=== PATIENT | female | born 1985 | race Caucasian/White ===

== ENCOUNTER 2019-07-07 09:43 | Emergency (ER) | payer SELFPAY ==
[2019-07-07] MEDS ORDERED: ONDANSETRON 4 MG/2 ML VIAL ONE (10:15)
[2019-07-07] MEDS ORDERED: KETOROLAC 30 MG/ML INJ ONE (10:15)
[2019-07-07] MEDS ORDERED: NA CHLORIDE 0.9% 1,000 ML ONE (10:15)
[2019-07-07 10:43] LABS: Urine Blood NEGATIVE (NEG); Urine Glucose NEGATIVE (NEG); Urine Protein 2+ (NEG); Urine Specific Gravity 1.025 (1.005-1.030)
[2019-07-07 11:20] LABS: Absolute Lymphocytes (CBC) 1.7 K/uL (0.7-4.9); Basophils % 0.2 % (0-1.3); Hematocrit 41.8 % (36.0-45.0); Lymphocytes % 10.6 % (15.3-44.8); MPV 8.4 fL (7.6-11.3); RBC Red Blood Cell Count 4.41 M/uL (3.86-4.86)
[2019-07-07 11:38] LABS: Albumin 3.4 g/dL (3.4-5.0); Bilirubin Direct 0.2 mg/dL (0-0.2); Bilirubin Total 0.6 mg/dL (0.2-1.0); Protein, Total 8.6 g/dL (6.4-8.2)
--- NOTE | 2019-07-07 11:49 | RAD REPORT ---
EXAM DESCRIPTION: US - Abdomen Exam Limited - 07/07/2019 11:17 am CLINICAL HISTORY: ABD PAIN COMPARISON: No comparisons FINDINGS: Gallbladder is tightly contracted. Patient may not have been fasting prior to this examina tion. Within the lumen there is no stone or sludge identifiable. Gallbladder wall shows a uniform thi ckening consistent with the contracted state. No gallbladder wall edema or focal mass/thickening. No pericholecystic fluid. No common duct stone or biliary tree dilatation identified. IMPRESSION: Gallbladder is tightly contracted possibly from nonfasting state. No stones or sludge se en within the lumen. No biliary tree abnormality seen.
--- NOTE | 2019-07-07 13:19 | RAD REPORT ---
EXAM DESCRIPTION: CT - Abdomen Pelvis W Contrast - 07/07/2019 1:03 pm CLINICAL HISTORY: ABD PAIN, fever right-sided abdominal pain COMPARISON: None. TECHNIQUE: Biphasic, helical CT imaging of the abdomen and pelvis was performed following 100 ml non -ionic IV contrast. Oral contrast was given. All CT scans are performed using dose optimization technique as appropriate and may include automated exposure control or mA/KV adjustment according to patient size. FINDINGS: No suspicious findings in the lung bases. The liver, spleen, and pancreas show no suspicious findings. Gallbladder and biliary tree are also wi thout suspicious finding. Symmetric renal function is seen with no hydronephrosis or suspicious renal mass. No pyelonephritis o r acute parenchymal process. Urinary bladder is contracted precluding accurate assessment. No adrenal abnormalities. No dilated bowel loops or bowel wall thickening. Appendix is normal. No free air, free fluid or infla mmatory stranding. No hernia, mass or bulky lymphadenopathy. Uterus and ovaries show no suspicious f indings. No suspicious bony findings. IMPRESSION: Contrast enhanced CT abdomen and pelvis showing no emergent finding. Urinary bladder is contracted limiting assessment. Cystitis is not excluded. Renal findings are not s uspicious for pyelonephritis.
--- NOTE | 2019-07-07 13:38 | ER ---
Nurse's Notes [facility] Name: Geri Patricio Age: 33 yrs Sex: Female : 1985 Arrival Date: 07/07/2019 Time: 09:46 Bed 16 Private MD: Diagnosis: Nausea and vomiting;Generalized abdominal pain Presentation: 07/07 09:58 Presenting complaint: Patient states: subjective fever x 3-4 weeks as well as nausea ss after eating. Also c/o intermittent R sided abd pain that is worse when laying on R side. Transition of care: patient was not received from another setting of care. Onset of symptoms is unknown. Risk Assessment: Do you want to hurt yourself or someone else? Patient reports no desire to harm self or others. Initial Sepsis Screen: Does the patient meet any 2 criteria? No. Patient's initial sepsis screen is negative. Does the patient have a suspected source of infection? No. Patient's initial sepsis screen is negative. Care prior to arrival: None. 09:58 Method Of Arrival: Ambulatory ss 09:58 Acuity: HOLLY 3 ss RIBBON WINDER: 10:03 LMP N/A - Irregular menses rb1 Historical: - Allergies: 10:00 Aspirin; ss - Home Meds: 10:00 None [Active]; ss - PMHx: 10:00 None; ss - PSHx: 10:00 Hernia repair; Tubal ligation; ss - Immunization history:: Adult Immunizations unknown. - Social history:: Smoking status: Patient uses tobacco products, smokes one pack cigarettes per day. - Ebola Screening: : Patient denies exposure to infectious person Patient denies travel to an Ebola-affected area in the 21 days before illness onset. Screenin:03 Abuse screen: Denies threats or abuse. Nutritional screening: No deficits noted. rb1 Tuberculosis screening: No symptoms or risk factors identified. Fall Risk None identified. Assessment: 10:03 General: Appears in no apparent distress. comfortable, Behavior is calm, cooperative, rb1 Reports fever for feeling ill for x 3 weeks. Pain: Complains of pain in epigastric area, right upper quadrant and right lower quadrant Pain currently is 6 out of 10 on a pain scale. Neuro: Level of Consciousness is awake, alert, obeys commands, Oriented to person, place, time, situation. Cardiovascular: Capillary refill < 3 seconds is brisk in bilateral fingers. Respiratory: Airway is patent Respiratory effort is even, unlabored, Respiratory pattern is regular, symmetrical. GI: Abdomen is flat, Reports nausea. : No signs and/or symptoms were reported regarding the genitourinary system. Derm: Skin is pink, warm \T\ dry. 11:00 Reassessment: Patient appears in no apparent distress at this time. No changes from rb1 previously documented assessment. 12:00 Reassessment: Patient appears in no apparent distress at this time. Patient and/or rb1 family updated on plan of care and expected duration. Pain level reassessed. Patient is alert, oriented x 3, equal unlabored respirations, skin warm/dry/pink. Pain 4/10. 12:39 Reassessment: pt. ambulated to the restroom without difficulty. rb1 12:53 Reassessment: Pt. went for CT. rb1 13:53 Reassessment: Patient appears in no apparent distress at this time. Patient and/or rb1 family updated on plan of care and expected duration. Pain level reassessed. Patient is alert, oriented x 3, equal unlabored respirations, skin warm/dry/pink. Vital Signs: 09:58 Resp 16; Temp 97.2(TE); Weight 68.04 kg; Height 5 ft. 7 in. (170.18 cm); Pain 5/10; ss 11:00 BP 109 / 67; Pulse 77; Resp 16; Temp 97.7(TE); Pulse Ox 99% on R/A; Pain 4/10; rb1 11:30 Pain 4/10; rb1 11:54 BP 106 / 67; Pulse 80; Resp 18; Pulse Ox 96% ; ms 12:30 BP 109 / 73; Pulse 75; Resp 17; Pulse Ox 100% on R/A; Pain 4/10; rb1 13:53 BP 108 / 69; Pulse 72; Resp 16; Temp 97.9(TE); Pulse Ox 99% on R/A; Pain 4/10; rb1 09:58 Body Mass Index 23.49 (68.04 kg, 170.18 cm) ED Course: 09:46 Patient arrived in ED. mr 09:58 Arm band placed on right wrist. ss 09:59 Triage completed. ss 10:00 Munira Delgado FNP-C is PHCP. kb 10:00 Leighton Young MD is Attending Physician. kb 10:03 Patient has correct armband on for positive identification. Bed in low position. Call rb1 light in reach. Side rails up X 1. Pulse ox on. NIBP on. Warm blanket given. 10:06 Margarita Brown, RN is Primary Nurse. rb1 10:44 Missed attempt(s): 22 gauge in left antecubital area. rb1 11:00 Initial lab(s) drawn, by me, sent to lab. Inserted saline lock: 20 gauge in left ms antecubital area, using aseptic technique. Blood collected. Missed attempt(s): 22 gauge in left forearm. Bleeding controlled, band aid applied, catheter tip intact. 11:44 US Abdomen Limited In Process Unspecified. EDMS 13:05 CT Abd/Pelvis - IV Contrast Only In Process Unspecified. EDMS 14:02 No provider procedures requiring assistance completed. IV discontinued, intact, rb1 bleeding controlled, No redness/swelling at site. Pressure dressing applied. Administered Medications: 11:13 Drug: NS 0.9% 1000 ml Route: IV; Rate: 1000 ml; Site: left antecubital; rb1 12:33 Follow up: IV Status: Completed infusion rb1 11:13 Drug: Zofran 4 mg Route: IVP; Site: left antecubital; rb1 11:30 Follow up: Response: No adverse reaction; Nausea is decreased rb1 11:14 Drug: TORadol - Ketorolac 15 mg Route: IVP; Site: left antecubital; rb1 11:30 Follow up: Response: No adverse reaction; Pain is decreased rb1 Output: 12:39 Urine: 1ml (Voided); Total: 1ml. rb1 Outcome: 13:35 Discharge ordered by . kb 14:02 Patient left the ED. rb1 14:02 Discharged to home ambulatory. rb1 14:02 Condition: stable 14:02 Discharge instructions given to patient, Instructed on discharge instructions, follow up and referral plans. medication usage, Demonstrated understanding of instructions, follow-up care, medications, Prescriptions given X 2. Signatures: Dispatcher [employer] EDMS Munira Delgado, STAINLESS STEEL FINISHER-C STAINLESS STEEL FINISHER-Yuly Her mr Huang, Mariia Ho ms, RN CORI Margarita Brown, RN RN rb1
--- NOTE | 2019-07-07 13:39 | EDPHYS ---
Physician Documentation [facility] Name: Geri Patricio Age: 33 yrs Sex: Female : 1985 Arrival Date: 07/07/2019 Time: 09:46 Bed 16 Private MD: ED Physician Leighton Young HPI: 07/07 14:27 This 33 yrs old Female presents to ER via Ambulatory with complaints of kb Fever, Nausea, Abdominal Pain. 14:27 The patient presents with abdominal pain that is diffuse. Onset: The symptoms/episode kb began/occurred 3 week(s) ago. The symptoms do not radiate. Associated signs and symptoms: Pertinent positives: nausea, vomiting, and diarrhea, fever. The symptoms are described as constant. Modifying factors: The symptoms are alleviated by nothing, the symptoms are aggravated by nothing. Severity of pain: At its worst the pain was mild moderate in the emergency department the pain is unchanged. The patient has not experienced similar symptoms in the past. The patient has not recently seen a physician. Pt reports abd pain, n/v/d, and subjective fever for 3 weeks. . ACUTE CARE OCCUPATIONAL THERAPIST: 10:03 LMP N/A - Irregular menses rb1 Historical: - Allergies: 10:00 Aspirin; ss - Home Meds: 10:00 None [Active]; ss - PMHx: 10:00 None; ss - PSHx: 10:00 Hernia repair; Tubal ligation; ss - Immunization history:: Adult Immunizations unknown. - Social history:: Smoking status: Patient uses tobacco products, smokes one pack cigarettes per day. - Ebola Screening: : Patient denies exposure to infectious person Patient denies travel to an Ebola-affected area in the 21 days before illness onset. ROS: 14:25 ENT: Negative for injury, pain, and discharge, Neck: Negative for injury, pain, and kb swelling, Cardiovascular: Negative for chest pain, palpitations, and edema, Respiratory: Negative for shortness of breath, cough, wheezing, and pleuritic chest pain, Back: Negative for injury and pain, : Negative for injury, bleeding, discharge, and swelling, MS/Extremity: Negative for injury and deformity, Skin: Negative for injury, rash, and discoloration, Neuro: Negative for headache, weakness, numbness, tingling, and seizure. 14:25 Constitutional: Positive for fatigue, fever, malaise, Negative for body aches, chills, poor PO intake, weight loss. 14:25 Abdomen/GI: Positive for abdominal pain, nausea, vomiting, and diarrhea. Exam: 14:26 Constitutional: This is a well developed, well nourished patient who is awake, alert, kb and in no acute distress. Head/Face: Normocephalic, atraumatic. ENT: Nares patent. No nasal discharge, no septal abnormalities noted. Tympanic membranes are normal and external auditory canals are clear. Oropharynx with no redness, swelling, or masses, exudates, or evidence of obstruction, uvula midline. Mucous membranes moist. Neck: Trachea midline, no thyromegaly or masses palpated, and no cervical lymphadenopathy. Supple, full range of motion without nuchal rigidity, or vertebral point tenderness. No Meningismus. Chest/axilla: Normal chest wall appearance and motion. Nontender with no deformity. No lesions are appreciated. Cardiovascular: Regular rate and rhythm with a normal S1 and S2. No gallops, murmurs, or rubs. Normal PMI, no JVD. No pulse deficits. Respiratory: Lungs have equal breath sounds bilaterally, clear to auscultation and percussion. No rales, rhonchi or wheezes noted. No increased work of breathing, no retractions or nasal flaring. Back: No spinal tenderness. No costovertebral tenderness. Full range of motion. Skin: Warm, dry with normal turgor. Normal color with no rashes, no lesions, and no evidence of cellulitis. MS/ Extremity: Pulses equal, no cyanosis. Neurovascular intact. Full, normal range of motion. Neuro: Awake and alert, GCS 15, oriented to person, place, time, and situation. Cranial nerves II-XII grossly intact. Motor strength 5/5 in all extremities. Sensory grossly intact. Cerebellar exam normal. Normal gait. 14:26 Abdomen/GI: Inspection: abdomen appears normal, Bowel sounds: normal, in all quadrants, Palpation: soft, in all quadrants, mild abdominal tenderness, in the right upper quadrant and right lower quadrant. Vital Signs: 09:58 Resp 16; Temp 97.2(TE); Weight 68.04 kg; Height 5 ft. 7 in. (170.18 cm); Pain 5/10; ss 11:00 BP 109 / 67; Pulse 77; Resp 16; Temp 97.7(TE); Pulse Ox 99% on R/A; Pain 4/10; rb1 11:30 Pain 4/10; rb1 11:54 BP 106 / 67; Pulse 80; Resp 18; Pulse Ox 96% ; ms 12:30 BP 109 / 73; Pulse 75; Resp 17; Pulse Ox 100% on R/A; Pain 4/10; rb1 13:53 BP 108 / 69; Pulse 72; Resp 16; Temp 97.9(TE); Pulse Ox 99% on R/A; Pain 4/10; rb1 09:58 Body Mass Index 23.49 (68.04 kg, 170.18 cm) ss MDM: 10:00 Patient medically screened. kb 13:35 Data reviewed: vital signs, nurses notes. Data interpreted: Pulse oximetry: on room air kb is 100 %. Interpretation: normal. Counseling: I had a detailed discussion with the patient and/or guardian regarding: the historical points, exam findings, and any diagnostic results supporting the discharge/admit diagnosis, lab results, radiology results, the need for outpatient follow up, a family practitioner, to return to the emergency department if symptoms worsen or persist or if there are any questions or concerns that arise at home. 07/07 10:07 Order name: Urine Dipstick--Ancillary (enter results); Complete Time: 10:45 sp 07/07 10:08 Order name: Basic Metabolic Panel 07/07 10:08 Order name: CBC with Diff; Complete Time: 11:24 kb 07/07 10:08 Order name: Hepatic Function 07/07 10:08 Order name: Lipase 07/07 10:08 Order name: IV Saline Lock; Complete Time: 11:00 kb 07/07 10:08 Order name: Labs collected and sent; Complete Time: 11:00 kb 07/07 10:08 Order name: US Abdomen Limited; Complete Time: 12:12 kb 07/07 12:12 Order name: CT Abd/Pelvis - IV Contrast Only; Complete Time: 13:20 kb Administered Medications: 11:13 Drug: NS 0.9% 1000 ml Route: IV; Rate: 1000 ml; Site: left antecubital; rb1 12:33 Follow up: IV Status: Completed infusion rb1 11:13 Drug: Zofran 4 mg Route: IVP; Site: left antecubital; rb1 11:30 Follow up: Response: No adverse reaction; Nausea is decreased rb1 11:14 Drug: TORadol - Ketorolac 15 mg Route: IVP; Site: left antecubital; rb1 11:30 Follow up: Response: No adverse reaction; Pain is decreased rb1 Disposition: 16:45 Co-signature as Attending Physician, Leighton Young MD I agree with the assessment and gianna plan of care. Disposition: 07/07/19 13:35 Discharged to Home. Impression: Nausea and vomiting, Generalized abdominal pain. - Condition is Stable. - Discharge Instructions: Nausea and Vomiting, Adult, [id number], Abdominal Pain, Adult, [id number]. - Prescriptions for Bentyl 20 mg Oral Tablet - take 1 tablet by ORAL route every 6 hours As needed; 20 tablet. Zofran 4 mg Oral Tablet - take 1 tablet by ORAL route every 6 hours As needed; 20 tablet. - Medication Reconciliation Form, Thank You Letter, Antibiotic Education, Prescription Opioid Use form. - Follow up: Emergency Department; When: As needed; Reason: Worsening of condition. Follow up: Private Physician; When: 2 - 3 days; Reason: Recheck today's complaints, Continuance of care, Re-evaluation by your physician. Signatures: Dispatcher [employer] EDMS Munira Delgado, OILER BANDER-C OILER BANDER-Leighton Lora MD MD cha Smirch, Shelby, RN RN ss Margarita Brown, CORI RN rb1 Corrections: (The following items were deleted from the chart) 14:02 13:35 07/07/2019 13:35 Discharged to Home. Impression: Nausea and vomiting; Generalized rb1 abdominal pain. Condition is Stable. Forms are Medication Reconciliation Form, Thank You Letter, Antibiotic Education, Prescription Opioid Use. Follow up: Emergency Department; When: As needed; Reason: Worsening of condition. Follow up: Private Physician; When: 2 - 3 days; Reason: Recheck today's complaints, Continuance of care, Re-evaluation by your physician. kb
== END 2019-07-07 14:02 | disposition home or self-care (01) ==
LOC: ER 09:43 → EDBD 09:43 → ER 14:02
DX: R10.84 Generalized abdominal pain (principal); F17.210 Nicotine dependence, cigarettes, uncomplicated; Z88.6 Allergy status to analgesic agent
CPT/HCPCS: 36415; 74177; 76705; 80048; 80076; 81003; 83690; 85025; 96361; 96374; 96375; 99284; J2405; J7030; Q9967